=== PATIENT | male | born 2000 | race Caucasian/White ===

== ENCOUNTER 2021-09-24 23:28 | Emergency (ER) | payer OTHER ==
[~2021-09-24 23:28] MED LIST: CEFUROXIME500 MG PO; MAGNESIUM CITR296 ML PO; METAMUCIL PACK3.4 GM PO; ZOFRAN4 MG PO
== END 2021-09-25 01:15 | disposition left against medical advice (07) ==
LOC: ER1 23:28
DX: Z53.21 Procedure and treatment not carried out due to patient leaving prior to being seen by health care provider (principal)